=== PATIENT | female | born 2005 | race Caucasian/White ===

== ENCOUNTER 2025-08-24 10:58 | Emergency (ER) | payer BC ==
[~2025-08-24] VITALS: Ht 165.1 cm; Wt 86.0 kg
[2025-08-24 11:37] LABS: BASOPHILS 0.6 % (0.1-1.2); EOSINOPHILS 0.8 % (0.7-5.8); LYMPHOCYTES 31.2 % (19.3-51.7); MCH 29.0 PG (25.6-32.2); MCHC 32.8 g/dL (32.2-35.5); MCV 88.5 fL (79.4-94.8); MONOCYTES 6.0 % (4.7-12.5); NEUTROPHILS 61.1 % (34.0-71.1); RBC 4.96 M/uL (3.93-5.22)
[2025-08-24 12:19] LABS: BLOOD/HGB, URINE MODERATE (Negative); KETONE, URINE NEGATIVE (Negative); LEUK ESTERASE, URINE NEGATIVE (negative); NITRITE, URINE NEGATIVE (negative)
[2025-08-24 12:29] LABS: BACTERIA, URINE NONE SEEN /hpf (negative); CASTS, URINE NONE SEEN \\lpf; CRYSTALS, URINE NONE SEEN (0-1+); EPITHELIAL CELLS, URINE SQUAMOUS 1+ /lpf (0-1+); REFLEX CULTURE, URINE No (No)
[2025-08-24 13:02] VITALS: BP 113/80
== END 2025-08-24 13:02 | disposition home or self-care (01) ==
LOC: ED 10:58
PROVIDERS: Emergency Medicine
DX: N92.0 Excessive and frequent menstruation with regular cycle (principal); R42 Dizziness and giddiness
CPT/HCPCS: 36415; 81001; 84703; 85025; 99284